=== PATIENT | female | born 1980 | race Caucasian/White ===

== ENCOUNTER 2016-12-04 18:06 | Emergency (ER) | payer MEDICAID | END 2016-12-04 20:47 | disposition home or self-care (01) | LOC: D.ER 18:06 | DX: M25.511 Pain in right shoulder (principal); F17.200 Nicotine dependence, unspecified, uncomplicated ==

== ENCOUNTER 2018-09-26 00:11 | Emergency (ER) | payer MEDICAID ==
[~2018-09-26] VITALS: Ht 162.6 cm; Wt 72.7 kg
[2018-09-26 00:22] VITALS: Ht 162.6 cm; Wt 72.7 kg
[2018-09-26 02:37] VITALS: BP 106/76
== END 2018-09-26 02:36 | disposition home or self-care (01) ==
LOC: D.ER 00:11
DX: S05.12XA Contusion of eyeball and orbital tissues, left eye, initial encounter (principal); Y04.2XXA Assault by strike against or bumped into by another person, initial encounter; F17.210 Nicotine dependence, cigarettes, uncomplicated